=== PATIENT | female | born 1985 | race Caucasian/White ===

== ENCOUNTER 2016-05-31 05:17 | Emergency (ER) ==
[2016-05-31 05:46] LABS: URINE CULTURE PL NEEDED? NO; URINE SOURCE CLEAN CATCH
[2016-05-31 05:54] LABS: BILIRUBIN URINE NEGATIVE (NEGATIVE); BLOOD URINE 4+ (NEGATIVE); CLARITY BLOODY (CLEAR); COLOR RED; GLUCOSE URINE NEGATIVE (NEGATIVE); LEUKOCYTES URINE TRACE (NEGATIVE); NITRITE URINE NEGATIVE (NEGATIVE); PH URINE 6.5; PROTEIN URINE 2+(100 mg/dL) mg/dL (NEGATIVE); UROBILINOGEN URINE NORMAL
--- NOTE | 2016-05-31 05:54 | PROVIDER DOCUMENTATION ---
HPI-Female /OB/Breast - General Source: reports: patient <Oj Zuniga - Last Filed: 05/31/16 05:51> <Eliud Dobson - Last Filed: 05/31/16 08:57> - General Chief Complaint: Flank Pain Stated Complaint: "BLOOD IN URINE" Time Seen by Provider: 05/31/16 05:45 Allergies/Adverse Reactions: Patient Allergies Allergy/AdvReac Type Severity Reaction Status Date / Time Penicillins Allergy Intermediate RASH Verified 03/15/15 00:08 cephalexin monohydrate * Allergy RASH Verified 05/31/16 05:34 [From Keflex] Home Medications: Amphetamine Salts [Adderall] 30 mg PO BID 05/31/16 Hydrocodone/APAP 10 mg/325 mg [[place]-10] 1 tab PO BID 05/31/16 - History of Present Illness-Female /OB Nature of Presenting Problem: pt states when she went to go urinate this morning that she noticed that her urine was quite bloody. She has some chronic lower back paiin that is unchanged. No fever or chills. No nausea or diarrhea. No dysuria or frequency (Oj Mena) Review of Systems - Adult - REVIEW OF SYSTEMS - ADULT Constitutional: denies: chills, fever Eyes: denies: discharge Ears, Nose, Mouth & Throat: denies: ear pain, sinus problem, throat pain Cardiovascular: denies: chest pain Respiratory: denies: cough, shortness of breath Gastrointestinal: reports: constipation. denies: abdominal pain, diarrhea, nausea, vomiting Genitourinary: reports: hematuria. denies: dysuria, discharge, frequency, flank pain Musculoskeletal: reports: back pain (chronic lower back) Integumentary: denies: rash Neurological: denies: headache/migraines, numbness, paresthesia All Other Systems: Reviewed and Negative <Oj Zuniga - Last Filed: 05/31/16 05:51> Past History - Adult - PAST MEDICAL HISTORY-ADULT Review of Records: reports: Old Records Reviewed, Nursing Assessment Review, Medications Reviewed, Social history reviewed & non-contributory. Major Childhood Illnesses: reports: denies history Respiratory: reports: asthma - PRIOR SURGERIES/PROCEDURES Surgical/Procedure History: reports: none - PRIOR HOSPITALIZATIONS Prior Hospitalizations: reports: none - IMMUNIZATION STATUS Childhood Immunizations: UTD Flu Vaccine: See Nurse Assessment - FAMILY HISTORY Family History: reviewed, not pertinent <Oj Zuniga - Last Filed: 05/31/16 05:51> Physical Exam-General - PHYSICAL EXAM-ADULT Initial Vital Signs Reviewed: Yes - CONSTITUTIONAL General Appearance: appears well, alert, no apparent distress - EYES Eyes: negative: scleral icterus - HEAD, EARS, NOSE, MOUTH & THROAT HENMT: normocephalic/atraumatic - RESPIRATORY Respiratory: chest non-tender, lungs clear, normal breath sounds, no pleuratic chest pain, no respiratory distress, no accessory muscle use - GASTROINTESTINAL (ABDOMEN) Abdominal Exam: normal bowel sounds, non tender, soft, no organomegaly, no pulsatile mass - MUSCULOSKELETAL Back Exam: normal inspection, no CVA tenderness, no vertebral tenderness - SKIN Integumentary: normal color, normal turgor, warm/dry - NEUROLOGIC Neurologic: grossly normal, no motor/sensory deficits - PSYCHIATRIC Psych/Mental Status: normal mood/affect, normal thought content, normal thought process, oriented x 3 <Oj Znuiga - Last Filed: 05/31/16 05:51> Progress <Oj Zuniga - Last Filed: 05/31/16 05:51> - CT/MRI 1 CT Study: Renal Stone Impression: Normal CT Results: negative per <Eliud Dobson - Last Filed: 05/31/16 08:57> - PLAN OF CARE/RESULTS Progress/Plan/Lab Results: Vital Signs - 24 hr 05/31/16 05:30 Temperature 99.1 F Pulse Rate 109 H Respiratory 20 Rate Blood Pressure 147/84 O2 Sat by Pulse 100 Oximetry Orders Category Date Time Status RENAL STONE SEARCH [CT] Stat Exams 05/31/16 06:[address] W/POSS RFLX CULT [URINALYSIS] Stat Lab 05/31/16 05:35 Completed Laboratory Tests 05/31/16 05:35 Urine Source CLEAN CATCH Urine Color RED Urine Clarity BLOODY A Urine pH 6.5 Ur Specific [place] 1.020 Urine Protein 2+(100 mg/dL) A Urine Ketones NEGATIVE Urine Blood 4+ Urine Nitrite NEGATIVE Urine Bilirubin NEGATIVE Urine Urobilinogen NORMAL Urine Microscopic RBC TNTC A Urine WBC TRACE A Urine Microscopic WBC <10 Ur Epithelial Cells <10 Urine Glucose NEGATIVE (Eliud Dobson) Departure <MoToñitoOj Restrepo - Last Filed: 05/31/16 05:51> - Departure Time of Disposition Order: 08:56 Certified Medical Emergency: Emergent <Eliud Dobson Cindy - Last Filed: 05/31/16 08:57> - Departure DIAGNOSIS: UTI (urinary tract infection) Qualifiers: Urinary tract infection type: acute cystitis Hematuria presence: with hematuria Qualified Code(s): N30.01 - Acute cystitis with hematuria Disposition: HOME 01 Condition: Stable Additional Instructions: ED Follow Up Instructions: You have been treated by a care provider in the Emergency Department. These instructions are being provided to you so you can have an understanding of how to care for yourself upon discharge. Upon discharge from the Emergency Department, you are responsible for making arrangements for follow-up care by a physician of your choice. Take all prescribed medications as directed. Return to the Emergency Department immediately for any new or worsening symptoms. You may call the Physician Referral phone number at [phone] to obtain a list of Physicians who are taking new patients. Prescriptions: Acetaminophen with Codeine [Tylenol with Codeine #3 Tablet] 1 each PO Q6H PRN PRN #14 tablet PRN Reason: Pain Sulfamethoxazole/Tmp D.s. [Septra Ds] 1 each PO BID #14 tablet Referrals: Sai Garay MD [Primary Care Provider] - Call for Appoint. 1-2days Jessee Negrete DO [STAFF PHYSICIAN] - Call for Appoint. 1-2days Instructions: Urinary Tract Infection, [id number] Physician Attestation
[2016-05-31 06:02] LABS: URINE EPITHELIAL CELLS <10 /HPF (<10); URINE RBC TNTC /HPF (<10); URINE WBC <10 /HPF (<10)
--- NOTE | 2016-05-31 08:34 | Diag Imaging Result Document ---
PROCEDURE NAME: RENAL STONE SEARCH - 05/31/2016 CT ABDOMEN AND PELVIS WITHOUT CONTRAST/RENAL STONE PROTOCOL: COMPARISON: None available. FINDINGS: The gallbladder is contracted. There are few calcified granulomata in the spleen. No definite renal or ureteral stones are identified and there is no hydronephrosis. The urinary bladder is unremarkable. There are several phleboliths in the pelvis. There is nothing that would indicate appendicitis. No definite adnexal masses are appreciated. No focal inflammatory change, free abdominal gas, or free fluid is identified. The remainder of the solid viscera of the abdomen and pelvis and the remainder of the GI tract is essentially unremarkable. IMPRESSION: 1. No renal or ureteral stones and no evidence of obstructive uropathy. 2. No other definite acute abdominal pathology.
[2016-05-31 09:08] VITALS: BP 133/77
== END 2016-05-31 09:08 | disposition home or self-care (01) ==
LOC: P.ED 05:17
DX: N30.01 Acute cystitis with hematuria (principal); R10.9 Unspecified abdominal pain; R31.9 Hematuria, unspecified; K59.00 Constipation, unspecified; G89.29 Other chronic pain; M54.5 Low back pain; Z79.899 Other long term (current) drug therapy
CPT/HCPCS: 74176; 81001